=== PATIENT | male | born 1970 | race Caucasian/White ===

== ENCOUNTER 2021-04-10 09:32 | Observation (INO) | payer OTHER ==
--- NOTE | 2021-04-10 10:29 | Event Note ---
ED Screening Note Date of service: 04/10/21 Time: 10:28 ED Screening Note: Patient sent by Dr. Luz for elevated potassium was 6.2 History of diabetes, CVA, and newly diagnosed CKD, not on dialysis This initial assessment/diagnostic orders/clinical plan/treatment(s) is/are subject to change based on patients health status, clinical progression and re- assessment by fellow clinical providers in the ED. Further treatment and workup at subsequent clinical providers discretion. Patient/guardian urged not to elope from the ED as their condition may be serious if not clinically assessed and managed. Initial orders include: Labs EKG
[2021-04-10 10:56] LABS: Basophils # (Auto) 0.1 K/mm3 (0.0-0.1); Basophils % (Auto) 1.3 % (0.0-1.8); Eosinophils # (Auto) 0.2 K/mm3 (0.0-0.4); Eosinophils % (Auto) 2.2 % (0.0-4.3); Hematocrit 33.8 % (35.5-45.6); Hemoglobin 11.5 gm/dl (11.8-15.2); Lymphocytes # (Auto) 1.6 K/mm3 (1.2-5.4); Lymphocytes % (Auto) 22.1 % (13.4-35.0); Mean Corpuscular HGB Conc 34 % (32-34); Mean Corpuscular Volume 84 fl (84-94); Monocytes # (Auto) 0.5 K/mm3 (0.0-0.8); Monocytes % (Auto) 6.6 % (0.0-7.3); Platelet Count 219 K/mm3 (140-440); Red Blood Count 4.03 M/mm3 (3.65-5.03); Red Cell Distribution Width 14.3 % (13.2-15.2)
[2021-04-10 11:13] LABS: Albumin 4.1 g/dL (3.9-5); Calcium 9.3 mg/dL (8.4-10.2)
[2021-04-10] MEDS ORDERED: INSULIN REGULAR, HUMAN 100 UNITS/1 ML IV ONE (11:40)
[2021-04-10] MEDS ORDERED: SODIUM BICARB 8.4% 50 MEQ/50 ML SYRINGE IV ONE (11:40)
[2021-04-10] MEDS ORDERED: SODIUM CHLORIDE 0.9% 1000 ML 1,000 ML IV ONE (11:40)
[2021-04-10] MEDS ORDERED: SODIUM POLYSTYRENE 15 GM/60 ML ORAL LIQD PO ONE (11:40)
[2021-04-10] MEDS ORDERED: DEXTROSE 50% IN WATER (25GM) 50 ML SYRINGE IV ONE ×3 (11:40→15:13)
--- NOTE | 2021-04-10 13:08 | Emergency Department Report ---
ED General Adult HPI - General Chief complaint: Recheck/Abnormal Lab/Rx Stated complaint: SENT BY DOC/HIGH POTASSIUM LEVEL Time Seen by Provider: 04/10/21 10:25 Source: patient Mode of arrival: Ambulatory Limitations: No Limitations - History of Present Illness Initial comments: Patient is a 51-year-old gentleman who is presenting with complaint of "I need to have my potassium checked". Patient states that he does have stage III renal insufficiency and hypertension. He saw his electrical cad technician Dr. Burgos yesterday and was called to come to the emergency department because his potassium was 6.3. Patient states he feels fine and denies any cough cold congestion fevers chills nausea vomiting diarrhea or decreased urination. States he is urinating freely. He has no pain anywhere. - Related Data Allergies Allergy/AdvReac Type Severity Reaction Status Date / Time No Known Allergies Allergy Unverified 04/10/21 09:34 ED Review of Systems ROS: Stated complaint: SENT BY DOC/HIGH POTASSIUM LEVEL Other details as noted in HPI Comment: All other systems reviewed and negative ED Past Medical Hx - Past Medical History Hx Diabetes: Yes Hx Renal Disease: Yes - Surgical History Past Surgical History?: No - Social History Smoking Status: Never Smoker Substance Use Type: None ED Physical Exam - General Limitations: No Limitations General appearance: alert, in no apparent distress - Head Head exam: Present: atraumatic, normocephalic - Eye Eye exam: Present: normal appearance - ENT ENT exam: Present: mucous membranes moist - Neck Neck exam: Present: normal inspection - Respiratory Respiratory exam: Present: normal lung sounds bilaterally. Absent: respiratory distress, wheezes, rales, rhonchi - Cardiovascular Cardiovascular Exam: Present: regular rate, normal rhythm. Absent: systolic murmur, diastolic murmur, rubs, gallop - GI/Abdominal GI/Abdominal exam: Present: soft, normal bowel sounds. Absent: tenderness, guarding, rebound - Rectal Rectal exam: Present: deferred - Extremities Exam Extremities exam: Present: normal inspection - Back Exam Back exam: Present: normal inspection - Neurological Exam Neurological exam: Present: alert, oriented X3 - Psychiatric Psychiatric exam: Present: normal affect, normal mood - Skin Skin exam: Present: warm, dry, intact, normal color. Absent: rash ED Course Vital Signs 04/10/21 09:39 Temperature 98.1 F Pulse Rate 101 H Respiratory 20 Rate Blood Pressure 151/89 O2 Sat by Pulse 98 Oximetry ED Medical Decision Making - Lab Data Result diagrams: 04/10/21 10:34 04/10/21 10:34 Lab Results 04/10/21 04/10/21 Range/Units 10:34 10:34 WBC 7.2 (4.5-11.0) K/mm3 RBC 4.03 (3.65-5.03) M/mm3 Hgb 11.5 L (11.8-15.2) gm/dl Hct 33.8 L (35.5-45.6) % MCV 84 (84-94) fl MCH 29 (28-32) pg MCHC 34 (32-34) % RDW 14.3 (13.2-15.2) % Plt Count 219 (140-440) K/mm3 Lymph % (Auto) 22.1 (13.4-35.0) % [place] % (Auto) 6.6 (0.0-7.3) % Eos % (Auto) 2.2 (0.0-4.3) % Baso % (Auto) 1.3 (0.0-1.8) % Lymph # (Auto) 1.6 (1.2-5.4) K/mm3 [place] # (Auto) 0.5 (0.0-0.8) K/mm3 Eos # (Auto) 0.2 (0.0-0.4) K/mm3 Baso # (Auto) 0.1 (0.0-0.1) K/mm3 Seg Neutrophils % 67.8 (40.0-70.0) % Seg Neutrophils # 4.9 (1.8-7.7) K/mm3 Sodium 137 (137-145) mmol/L Potassium 6.4 H* (3.6-5.0) mmol/L Chloride 102.5 (98-107) mmol/L Carbon Dioxide 25 (22-30) mmol/L Anion Gap 16 mmol/L BUN 35 H (9-20) mg/dL Creatinine 2.4 H (0.8-1.3) mg/dL Estimated GFR 29 ml/min BUN/Creatinine Ratio 15 % Glucose 177 H (75-100) mg/dL Calcium 9.3 (8.4-10.2) mg/dL Total Bilirubin 0.30 (0.1-1.2) mg/dL AST 19 (5-40) units/L ALT 16 (7-56) units/L Alkaline Phosphatase 119 (35-129) units/L Total Protein 6.7 (6.3-8.2) g/dL Albumin 4.1 (3.9-5) g/dL Albumin/Globulin Ratio 1.6 % - EKG Data -: EKG Interpreted by Me EKG shows normal: sinus rhythm, axis, intervals, QRS complexes, ST-T waves Rate: normal - EKG Data Interpretation: normal EKG - Medical Decision Making Patient here in the emergency department for evaluation of his potassium. Recheck the patient's potassium and it was 6.4 with no hemolysis. Patient given a cocktail of D50, 10 units of insulin, Kayexalate and sodium bicarb. Patient be admitted for observation. Critical care attestation.: If time is entered above; I have spent that time in minutes in the direct care of this critically ill patient, excluding procedure time. ED Disposition Clinical Impression: Hyperkalemia Disposition: 09 OP ADMIT IP TO THIS HOSP Is pt being admited?: Yes Does the pt Need Aspirin: No Condition: Stable Time of Disposition: 13:09
[2021-04-10] MEDS ORDERED: ACETAMINOPHEN 325 MG TAB PO PRN (14:41)
[2021-04-10] MEDS ORDERED: oxyCODONE /ACETAMINOPHEN 5-325MG TAB PO PRN (14:41)
[2021-04-10] MEDS ORDERED: ALBUTEROL 2.5 MG/3 ML NEBU IH PRN (14:41)
[2021-04-10] MEDS ORDERED: ONDANSETRON 4 MG/2 ML INJ IV PRN (14:41)
[2021-04-10] MEDS ORDERED: HYDROmorphone 1 MG/1 ML INJ IV PRN (14:41)
--- NOTE | 2021-04-10 14:45 | History and Physical Report ---
History of Present Illness Chief complaint: My potassium is high History of present illness: 51 YO Male with DM, HTN, CKD presents to ED for evaluation. Patient reports "my potassium is really high". Patient states that he was seen and evaluated by his ammonia still operator Dr. Simeon on 04/09/2021. Patient reports that he received a call today stating that his potassium was high and to seek further care. Patient transported to [facility] via private vehicle for further care and evaluation of the aforementioned symptoms. Patient seen and evaluated in the emergency department. All lab and imaging studies reviewed. Patient found to have hyperkalemia without EKG changes, as well as ELLEN with ATN. Patient treated with supportive care, IV fluid resuscitation therapy. Patient placed in observation status and admitted to medical floor for further care and evaluation. Patient denies fever, chills, chest pain, palpitation, productive cough, skin rash, recent ill contacts, or known exposure to COVID-19. No prior admission for review. No medication listed at time of admission for reconciliation. Nephrology team consulted in ED. Past History Past Medical History: diabetes, hypertension, renal failure Past Surgical History: No surgical history, Other (Reviewed) Social history: single. denies: smoking, alcohol abuse, prescription drug abuse Family history: hypertension Medications and Allergies Allergies Allergy/AdvReac Type Severity Reaction Status Date / Time No Known Allergies Allergy Unverified 04/10/21 09:34 Active Meds: Active Medications Acetaminophen (Acetaminophen 325 Mg Tab) 650 mg PO Q4H PRN PRN Reason: Pain MILD(1-3)/Fever >100.5/RENE Albuterol (Albuterol 2.5 Mg/3 Ml Nebu) 2.5 mg IH Q4HRT PRN PRN Reason: Shortness Of Breath Hydromorphone HCl (Hydromorphone 1 Mg/1 Ml Inj) 0.5 mg IV Q12H PRN PRN Reason: Pain , Severe (7-10) Sodium Chloride (Nacl 0.9% 1000 Ml) 1,000 mls @ 125 mls/hr IV DIRECT ISABELLE Ondansetron HCl (Ondansetron 4 Mg/2 Ml Inj) 4 mg IV Q8H PRN PRN Reason: Nausea And Vomiting Oxycodone/Acetaminophen (Oxycodone /Acetaminophen 5-325mg Tab) 1 tab PO Q12H PRN PRN Reason: Pain, Moderate (4-6) Sodium Chloride (Sodium Chloride 0.9% 10 Ml Flush Syringe) 10 ml IV BID ISABELLE Sodium Chloride (Sodium Chloride 0.9% 10 Ml Flush Syringe) 10 ml IV PRN PRN PRN Reason: LINE FLUSH Review of Systems Constitutional: no weight loss, no weight gain, no fever, no chills Ears, nose, mouth and throat: no ear pain, no decreased hearing, no nose pain, no nasal discharge, no sinus pressure Cardiovascular: no chest pain, no orthopnea, no rapid/irregular heart beat, no syncope Respiratory: no cough, no excessive sputum Gastrointestinal: no abdominal pain, no vomiting, no diarrhea, no hematemesis Genitourinary Male: no dysuria, no hematuria, no flank pain, no urinary frequency, no urinary hesitancy, no incontinence, no erectile dysfunction Rectal: no pain, no incontinence, no bleeding Musculoskeletal: no neck stiffness, no shooting arm pain, no arm numbness/tingling, no low back pain Integumentary: no rash, no pruritis, no redness, no sores, no wounds Neurological: no head injury, no paralysis, no weakness, no parathesias, no numbness, no tingling, no seizures, no syncope, no ataxia, no lack of coordination Psychiatric: no anxiety, no memory loss, no change in sleep habits, no hypersomnia, no change in appetite Endocrine: no cold intolerance, no heat intolerance, no excessive thirst, no nocturia Hematologic/Lymphatic: no easy bruising, no easy bleeding, no lymphadenopathy Allergic/Immunologic: no urticaria, no wheezing, no persistent infections, no anaphylaxis Exam - Constitutional Vitals: Temp Pulse Resp BP Pulse Ox 98.1 F 101 H 20 151/89 98 04/10/21 09:39 04/10/21 09:39 04/10/21 09:39 04/10/21 09:39 04/10/21 09:39 General appearance: Present: no acute distress, well-nourished - EENT Eyes: Present: PERRL ENT: hearing intact, clear oral mucosa - Neck Neck: Present: supple, normal ROM - Respiratory Respiratory effort: normal Respiratory: bilateral: CTA - Cardiovascular Heart Sounds: Present: S1 & S2. Absent: rub, click - Extremities Extremities: pulses symmetrical, No edema Peripheral Pulses: within normal limits - Abdominal General gastrointestinal: Present: soft, non-tender, non-distended, normal bowel sounds Male genitourinary: Present: normal - Integumentary Integumentary: Present: clear, warm, dry - Musculoskeletal Musculoskeletal: gait normal, strength equal bilaterally - Psychiatric Psychiatric: appropriate mood/affect, intact judgment & insight - Neurologic Neurologic: CNII-XII intact, moves all extremities Results - Labs CBC & Chem 7: 04/10/21 10:34 04/10/21 10:34 Labs: Abnormal lab results 04/10/21 04/10/21 Range/Units 10:34 10:34 Hgb 11.5 L (11.8-15.2) gm/dl Hct 33.8 L (35.5-45.6) % Potassium 6.4 H* (3.6-5.0) mmol/L BUN 35 H (9-20) mg/dL Creatinine 2.4 H (0.8-1.3) mg/dL Glucose 177 H (75-100) mg/dL Assessment and Plan - Patient Problems (1) Hyperkalemia Current Visit: Yes Status: Acute Plan to address problem: Calcium, Kayexalate, supportive care, no EKG changes, repeat BMP in a.m., nephrology team consulted in ED as per ED staff. (2) Hypertension Current Visit: Yes Status: Acute Qualifiers: Hypertension type: primary hypertension Qualified Code(s): I10 - Essential (primary) hypertension Plan to address problem: Monitor blood pressure every shift, continue medical management. (3) Diabetes Current Visit: Yes Status: Acute Plan to address problem: Consistent carbohydrate diet, sliding scale insulin, Accu-Chek, hypoglycemia protocol, supportive care. (4) DVT prophylaxis Current Visit: Yes Status: Acute Plan to address problem: SCDs bilateral lower extremities while in bed, patient is ambulatory
--- NOTE | 2021-04-10 15:49 | Event Note ---
Date: 04/10/21 Case discussed with ER physician, recommend admission for management Patient sent from clinic due to labs concerning for hyperkalemia Patient currently has hyperkalemia with ELLEN/CKD No immediate indication for dialysis but will need extensive workup Medical management for now with repeat lab work and further management as warranted Check renal ultrasound Check TLS labs Check CPK Renal diet Nereida Finley MD
[2021-04-10 15:57] LABS: Calcium 8.8 mg/dL (8.4-10.2)
[2021-04-10 16:00] LABS: Uric Acid 6.1 mg/dL (3.5-7.6)
[2021-04-10] MEDS: SODIUM CHLORIDE 0.9% 1000 ML 1,000 ML IV SCH (23:21)
[2021-04-11] MEDS: SODIUM CHLORIDE 0.9% 1000 ML 1,000 ML IV SCH ×2 (05:07→13:56)
[2021-04-11 09:39] LABS: Calcium 9.2 mg/dL (8.4-10.2)
--- NOTE | 2021-04-11 10:34 | Ultrasound Report ---
. ULTRASOUND RENAL INDICATION / CLINICAL INFORMATION: ELLEN. COMPARISON: None available. FINDINGS: RIGHT KIDNEY: Length = 11.2 cm. - Echogenicity: Normal. - Cortical Thickness: Normal. - Hydronephrosis: None. - Cyst or mass: No significant abnormality. - Stones: None seen. LEFT KIDNEY: Length = 10.9 cm. - Echogenicity: Normal. - Cortical Thickness: Normal. - Hydronephrosis: None. - Cyst or mass: No significant abnormality. - Stones: None seen. URINARY BLADDER: No significant abnormality. FREE FLUID: None. ADDITIONAL FINDINGS: None. IMPRESSION: 1. No significant abnormality. Signer Name: Esdras Fontenot MD Signed: 04/11/2021 10:30 AM Workstation Name: [id number]
[2021-04-11] MEDS ORDERED: SODIUM POLYSTYRENE 15 GM/60 ML ORAL LIQD PO NR ×2 (10:37→14:00)
--- NOTE | 2021-04-11 13:05 | Progress Note ---
Assessment and Plan Assessment and plan: 51 YO Male with DM, HTN, CKD presents to ED for evaluation. Patient reports "my potassium is really high". Patient states that he was seen and evaluated by his tail worker Dr. Simeon on 04/09/2021. Patient reports that he received a call today stating that his potassium was high and to seek further care. Patient transported to [facility] via private vehicle for further care and evaluation of the aforementioned symptoms. Patient seen and evaluated in the emergency department. All lab and imaging studies reviewed. Patient found to have hyperkalemia without EKG changes, as well as ELLEN with ATN. Patient treated with supportive care, IV fluid resuscitation therapy. Patient placed in observation status and admitted to medical floor for further care and evaluation. Patient denies fever, chills, chest pain, palpitation, productive cough, skin rash, recent ill contacts, or known exposure to COVID-19. No prior admission for review. No medication listed at time of admission for reconciliation. Nephrology team consulted in ED. ELLEN with ATN: IV fluid resuscitation therapy, BMP, repeat BMP in a.m. to monitor serum creatinine as well as GFR, nephrology team consulted in ED, supportive care. Hyperkalemia Current Visit: Yes Status: Acute Plan to address problem: Calcium, Kayexalate, supportive care, no EKG changes, repeat BMP in a.m., nephrology team consulted in ED as per ED staff. 04/11: Still elevated, will give additional kayxlate. Hypertension Current Visit: Yes Status: Acute Qualifiers: Hypertension type: primary hypertension Qualified Code(s): I10 - Essential (primary) hypertension Plan to address problem: Monitor blood pressure every shift, continue medical management. Diabetes Current Visit: Yes Status: Acute Plan to address problem: Consistent carbohydrate diet, sliding scale insulin, Accu-Chek, hypoglycemia protocol, supportive care. DVT prophylaxis Current Visit: Yes Status: Acute Plan to address problem: SCDs bilateral lower extremities while in bed, patient is ambulatory History Interval history: Patient seen and examined, No acute distress noted at this time. Potassium still elevated, he denies taken potassium supplement but states that he has been eating lots of potatoes. Hospitalist Physical - Physical exam Narrative exam: General appearance: Present: no acute distress, well-nourished - EENT Eyes: Present: PERRL ENT: hearing intact, clear oral mucosa - Neck Neck: Present: supple, normal ROM - Respiratory Respiratory effort: normal Respiratory: bilateral: CTA - Cardiovascular Heart Sounds: Present: S1 & S2. Absent: rub, click - Extremities Extremities: pulses symmetrical, No edema Peripheral Pulses: within normal limits - Abdominal General gastrointestinal: Present: soft, non-tender, non-distended, normal bowel sounds Male genitourinary: Present: normal - Integumentary Integumentary: Present: clear, warm, dry - Musculoskeletal Musculoskeletal: gait normal, strength equal bilaterally - Psychiatric Psychiatric: appropriate mood/affect, intact judgment & insight - Neurologic Neurologic: CNII-XII intact, moves all extremities - Constitutional Vitals: Temp Pulse Resp BP Pulse Ox 97.9 F 84 20 140/83 96 04/11/21 06:33 04/11/21 06:33 04/11/21 06:33 04/11/21 06:32 04/11/21 06:33 General appearance: Present: no acute distress, well-nourished Results - Labs CBC & Chem 7: 04/10/21 10:34 04/11/21 20:33 Labs: Laboratory Last Values WBC 7.2 K/mm3 (4.5-11.0) 04/10/21 10:34 RBC 4.03 M/mm3 (3.65-5.03) 04/10/21 10:34 Hgb 11.5 gm/dl (11.8-15.2) L 04/10/21 10:34 Hct 33.8 % (35.5-45.6) L 04/10/21 10:34 MCV 84 fl (84-94) 04/10/21 10:34 MCH 29 pg (28-32) 04/10/21 10:34 MCHC 34 % (32-34) 04/10/21 10:34 RDW 14.3 % (13.2-15.2) 04/10/21 10:34 Plt Count 219 K/mm3 (140-440) 04/10/21 10:34 Lymph % (Auto) 22.1 % (13.4-35.0) 04/10/21 10:34 [place] % (Auto) 6.6 % (0.0-7.3) 04/10/21 10:34 Eos % (Auto) 2.2 % (0.0-4.3) 04/10/21 10:34 Baso % (Auto) 1.3 % (0.0-1.8) 04/10/21 10:34 Lymph # (Auto) 1.6 K/mm3 (1.2-5.4) 04/10/21 10:34 [place] # (Auto) 0.5 K/mm3 (0.0-0.8) 04/10/21 10:34 Eos # (Auto) 0.2 K/mm3 (0.0-0.4) 04/10/21 10:34 Baso # (Auto) 0.1 K/mm3 (0.0-0.1) 04/10/21 10:34 Seg Neutrophils % 67.8 % (40.0-70.0) 04/10/21 10:34 Seg Neutrophils # 4.9 K/mm3 (1.8-7.7) 04/10/21 10:34 Sodium 139 mmol/L (137-145) 04/11/21 08:34 Potassium 6.0 mmol/L (3.6-5.0) H 04/11/21 10:42 Chloride 105.0 mmol/L (98-107) 04/11/21 08:34 Carbon Dioxide 25 mmol/L (22-30) 04/11/21 08:34 Anion Gap 15 mmol/L 04/11/21 08:34 BUN 30 mg/dL (9-20) H 04/11/21 08:34 Creatinine 2.0 mg/dL (0.8-1.3) H 04/11/21 08:34 Estimated GFR 35 ml/min 04/11/21 08:34 BUN/Creatinine Ratio 15 % 04/11/21 08:34 Glucose 144 mg/dL (75-100) H 04/11/21 08:34 POC Glucose 228 mg/dL (70-105) H 04/10/21 16:42 Uric Acid 6.1 mg/dL (3.5-7.6) 04/10/21 15:26 Calcium 9.2 mg/dL (8.4-10.2) 04/11/21 08:34 Phosphorus 3.60 mg/dL (2.5-4.5) 04/10/21 15:26 Total Bilirubin 0.30 mg/dL (0.1-1.2) 04/10/21 10:34 AST 19 units/L (5-40) 04/10/21 10:34 ALT 16 units/L (7-56) 04/10/21 10:34 Alkaline Phosphatase 119 units/L (35-129) 04/10/21 10:34 Total Creatine Kinase 237 units/L (55-170) H 04/10/21 15:26 Total Protein 6.7 g/dL (6.3-8.2) 04/10/21 10:34 Albumin 4.1 g/dL (3.9-5) 04/10/21 10:34 Albumin/Globulin Ratio 1.6 % 04/10/21 10:34 Garcia/IV: Voiding Method Urinal Active Medications - Current Medications Current Medications: Generic Name Dose Route Start Last Admin Trade Name Freq PRN Reason Stop Dose Admin Acetaminophen 650 mg 04/10/21 14:41 Acetaminophen 325 Mg Tab PO Q4H PRN Pain MILD(1-3)/Fever >100.5/RENE Albuterol 2.5 mg 04/10/21 14:41 Albuterol 2.5 Mg/3 Ml Nebu IH Q4HRT PRN Shortness Of Breath Hydromorphone HCl 0.5 mg 04/10/21 14:41 Hydromorphone 1 Mg/1 Ml Inj IV Q12H PRN Pain , Severe (7-10) Sodium Chloride 1,000 mls @ 125 mls/hr 04/10/21 14:45 04/11/21 05:07 Nacl 0.9% 1000 Ml IV 125 mls/hr DIRECT ISABELLE Administration Ondansetron HCl 4 mg 04/10/21 14:41 Ondansetron 4 Mg/2 Ml Inj IV Q8H PRN Nausea And Vomiting Oxycodone/Acetaminophen 1 tab 04/10/21 14:41 Oxycodone /Acetaminophen 5-325mg Tab PO Q12H PRN Pain, Moderate (4-6) Sodium Chloride 10 ml 04/10/21 22:00 04/10/21 23:21 Sodium Chloride 0.9% 10 Ml Flush Syringe IV 10 ml BID ISABELLE Administration Sodium Chloride 10 ml 04/10/21 14:41 Sodium Chloride 0.9% 10 Ml Flush Syringe IV PRN PRN LINE FLUSH
[2021-04-11 19:31] LABS: Bilirubin,Urine NEG (Negative); Blood,Urine SM (Negative); Color,Urine Straw (Yellow); Urobilinogen,Urine < 2.0 mg/dL (<2.0); WBC,Urine < 1.0 /HPF (0.0-6.0)
--- NOTE | 2021-04-11 20:29 | Consultation ---
History of Present Illness - Reason for Consult Consult date: 04/11/21 hyperkalemia - History of Present Illness This is a 51-year-old man with CKD and diabetes who was seen outpatient in our office by Dr. Luz 03/18 for chronic kidney disease. His creatinine at the time was 2.3 and potassium was 5.4. He had routine lab work done prior to the next visit which was concerning for a potassium of 6.3. He was notified to immediately present to the emergency department for further workup. Patient denies poor oral intake, change in medications, aggressive workouts and physical injury. He notes good urine output. He denies NSAID use. He notes abundant use of potatoes in his diet. Past History Past Medical History: diabetes, hypertension, renal failure Past Surgical History: No surgical history, Other (Reviewed) Social history: single. denies: smoking, alcohol abuse, prescription drug abuse Family history: hypertension Medications and Allergies Allergies Allergy/AdvReac Type Severity Reaction Status Date / Time No Known Allergies Allergy Unverified 04/10/21 09:34 Active Meds: Active Medications Acetaminophen (Acetaminophen 325 Mg Tab) 650 mg PO Q4H PRN PRN Reason: Pain MILD(1-3)/Fever >100.5/RENE Albuterol (Albuterol 2.5 Mg/3 Ml Nebu) 2.5 mg IH Q4HRT PRN PRN Reason: Shortness Of Breath Hydromorphone HCl (Hydromorphone 1 Mg/1 Ml Inj) 0.5 mg IV Q12H PRN PRN Reason: Pain , Severe (7-10) Sodium Chloride (Nacl 0.9% 1000 Ml) 1,000 mls @ 125 mls/hr IV [facility] Last Admin: 04/11/21 13:56 Dose: 125 mls/hr Documented by: Ondansetron HCl (Ondansetron 4 Mg/2 Ml Inj) 4 mg IV Q8H PRN PRN Reason: Nausea And Vomiting Oxycodone/Acetaminophen (Oxycodone /Acetaminophen 5-325mg Tab) 1 tab PO Q12H PRN PRN Reason: Pain, Moderate (4-6) Sodium Chloride (Sodium Chloride 0.9% 10 Ml Flush Syringe) 10 ml IV BID [facility] Last Admin: 04/11/21 13:56 Dose: 10 ml Documented by: Sodium Chloride (Sodium Chloride 0.9% 10 Ml Flush Syringe) 10 ml IV PRN PRN PRN Reason: LINE FLUSH Sodium Polystyrene Sulfonate (Sodium Polystyrene 15 Gm/60 Ml Oral Liqd) 30 gm PO ONCE NR Stop: 04/12/21 06:00 Last Admin: 04/11/21 19:01 Dose: 30 gm Documented by: Review of Systems Constitutional: no fever, no chills Ears, nose, mouth and throat: no nasal congestion, no nasal discharge Cardiovascular: no chest pain, no shortness of breath Respiratory: no cough, no excessive sputum Gastrointestinal: no nausea, no vomiting, no diarrhea Musculoskeletal: no morning stiffness, no muscle weakness Integumentary: no rash, no pruritis Neurological: no weakness, no syncope Psychiatric: no anxiety, no paranoia Endocrine: no weight change, no palpatations Allergic/Immunologic: no wheezing Exam - Vital Signs Vital signs: Vital Signs Temp Pulse Resp BP Pulse Ox 98.1 F 101 H 20 151/89 98 04/10/21 09:39 04/10/21 09:39 04/10/21 09:39 04/10/21 09:39 04/10/21 09:39 - Physical Exam Narrative exam: General: No acute distress HEENT: Oral mucosa moist Neck: Supple, no JVD Chest: Clear to auscultation bilaterally Heart: RRR, S1 and S2, no pericardial rub Abdomen: Soft, nontender, no renal bruit Extremity: No peripheral cyanosis, edema Neurological: Alert, awake, no asterixis Dermatology: No skin rash Psych: No agitation Musculoskeletal: No joint effusion Results - Lab Results 04/10/21 10:34 04/11/21 10:42 Most recent lab results Calcium 9.2 mg/dL (8.4-10.2) 04/11/21 08:34 Phosphorus 3.60 mg/dL (2.5-4.5) 04/10/21 15:26 Assessment and Plan Hyperkalemia, no EKG changes Chronic kidney disease Proteinuria Diabetes Etiology of hyperkalemia unclear. TLS and rhabdomyolysis has been ruled out. No signs or symptoms concerning for necrotizing fascitis. Denies decrease in urine output, check bladder scan for retention No acidosis noted on labs, sugars within acceptable range Hold lisinopril Status post medical management of hyperkalemia yesterday Kayexalate 1 today for recurrence, repeat blood work Continue IVF Check UPCR Glucose control as per primary No immediate indication for HD
[2021-04-11 21:02] LABS: Calcium 8.4 mg/dL (8.4-10.2)
[2021-04-11] MEDS ORDERED: LACTATED RINGERS 1,000 ML IV SCH (21:30)
[2021-04-12 01:24] VITALS: BP 147/87
[2021-04-12] MEDS ORDERED: SODIUM BICARBONATE 650 MG TAB PO SCH (08:00)
[2021-04-12 08:15] LABS: Calcium 8.8 mg/dL (8.4-10.2)
[2021-04-12] MEDS ORDERED: SODIUM POLYSTYRENE 15 GM/60 ML ORAL LIQD PO NR (09:30)
--- NOTE | 2021-04-12 10:05 | Progress Note ---
Assessment and Plan Assessment * Hyperkalemia, no EKG changes * Stage III chronic kidney disease * Proteinuria * Type II diabetes mellitus Plan * Hyperkalemia improved * Continue medical management * Continue to hold lisinopril - do not resume at discharge * Continue IVF * Check UPCR * Glucose control as per primary * No immediate indication for HD Subjective Date of service: 04/12/21 Objective - Vital Signs Vital signs: Vital Signs - 12hr 04/11/21 04/12/21 22:10 01:00 Temperature 98.5 F Pulse Rate 96 H Respiratory 18 18 Rate Blood Pressure 147/87 O2 Sat by Pulse 95 100 Oximetry - Lab 04/10/21 10:34 04/12/21 07:08 Most recent lab results Calcium 8.8 mg/dL (8.4-10.2) 04/12/21 07:08 Phosphorus 3.60 mg/dL (2.5-4.5) 04/10/21 15:26 Medications & Allergies - Medications Allergies/Adverse Reactions: Allergies No Known Allergies Allergy (Unverified 04/10/21 09:34) Active Medications: Generic Name Dose Route Start Last Admin Trade Name Freq PRN Reason Stop Dose Admin Acetaminophen 650 mg 04/10/21 14:41 Acetaminophen 325 Mg Tab PO Q4H PRN Pain MILD(1-3)/Fever >100.5/RENE Albuterol 2.5 mg 04/10/21 14:41 Albuterol 2.5 Mg/3 Ml Nebu IH Q4HRT PRN Shortness Of Breath Hydromorphone HCl 0.5 mg 04/10/21 14:41 Hydromorphone 1 Mg/1 Ml Inj IV Q12H PRN Pain , Severe (7-10) Lactated Ringer's 1,000 mls @ 100 mls/hr 04/11/21 21:30 Lactated Ringers IV DIRECT ISABELLE Ondansetron HCl 4 mg 04/10/21 14:41 Ondansetron 4 Mg/2 Ml Inj IV Q8H PRN Nausea And Vomiting Oxycodone/Acetaminophen 1 tab 04/10/21 14:41 Oxycodone /Acetaminophen 5-325mg Tab PO Q12H PRN Pain, Moderate (4-6) Sodium Bicarbonate 1,300 mg 04/12/21 08:00 04/12/21 09:27 Sodium Bicarbonate 650 Mg Tab PO 1,300 mg TID ISABELLE Administration Sodium Chloride 10 ml 04/10/21 22:00 04/11/21 21:26 Sodium Chloride 0.9% 10 Ml Flush Syringe IV 10 ml BID ISABELLE Administration Sodium Chloride 10 ml 04/10/21 14:41 Sodium Chloride 0.9% 10 Ml Flush Syringe IV PRN PRN LINE FLUSH Sodium Polystyrene Sulfonate 30 gm 04/12/21 09:30 04/12/21 09:27 Sodium Polystyrene 15 Gm/60 Ml Oral Liqd PO 04/12/21 12:30 30 gm ONCE@0930 NR Administration
--- NOTE | 2021-04-12 11:46 | Electrocardiograph Report ---
[facility] Test Date: 2021-04-10 Test Time: 09:49:25 Pat Name: SHAMEKA DELEON Department: Room: [facility] 1 Gender: M Manager Multicultural: TOMASZ : 1970 Requested By: FRANCISCO SMITH Order Number: [id number] Reading MD: Juana Perry Measurements Intervals [place] Rate: 95 P: 58 VA: 157 QRS: 32 QRSD: 77 T: 45 QT: 314 QTc: 395 Interpretive Statements Sinus rhythm Nonspecific early repolarization ST abnormality No previous ECG available for comparison Electronically Signed On 04-12-2021 11:46:24 EDT by Juana Perry
--- NOTE | 2021-04-12 12:32 | Discharge Summary ---
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 Patient reports "my potassium is really high". 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 Simeon on 04/09/2021. Patient reports that he received a call today stating that his potassium was high and to seek further care. Patient transported to [facility] via private vehicle for further care and evaluation of the aforementioned symptoms. Patient seen and evaluated in the emergency department. All lab and imaging studies reviewed. Patient found to have hyperkalemia without EKG changes, as well as ELLEN with ATN. Patient treated with supportive care, IV fluid resuscitation therapy. Patient placed in observation status and admitted to medical floor for further care and evaluation. Patient denies fever, chills, chest pain, palpitation, productive cough, skin rash, recent ill contacts, or known exposure to COVID-19. No prior admission for review. No medication listed at time of admission for reconciliation. Nephrology team consulted in ED. 04/12: Potassium down to 5.1 will give additional Kayexalate today discussed with repair armature winder helper raissa for patient to be discharged and follow-up outpatient with them. Advised patient to avoid high potassium diet he verbalized understanding. Hyperkalemia Current Visit: Yes Status: Acute Plan to address problem: Calcium, Kayexalate, supportive care, no EKG changes, repeat BMP in a.m., nephrology team consulted in ED as per ED staff. 04/11: Still elevated, will give additional kayxlate. Hypertension Current Visit: Yes Status: Acute Qualifiers: Hypertension type: primary hypertension Qualified Code(s): I10 - Essential (primary) hypertension Plan to address problem: Monitor blood pressure every shift, continue medical management. Diabetes Current Visit: Yes Status: Acute Plan to address problem: Consistent carbohydrate diet, sliding scale insulin, Accu-Chek, hypoglycemia protocol, supportive care. ELLEN with ATN: IV fluid resuscitation therapy, BMP, repeat BMP in a.m. to monitor serum creatinine as well as GFR, nephrology team consulted in ED, supportive care. Disposition: DC-01 TO HOME OR SELFCARE Final Discharge Diagnosis (Prints w/discharge instructions): Acute kidney injury secondary to vasomotor nephropathy with hyperkalemia Time spent for discharge: 35 minutes Core Measure Documentation - Palliative Care Palliative Care/ Comfort Measures: Not Applicable - Core Measures Any of the following diagnoses?: none Exam - Physical Exam Narrative exam: General appearance: Present: no acute distress, well-nourished - EENT Eyes: Present: PERRL ENT: hearing intact, clear oral mucosa - Neck Neck: Present: supple, normal ROM - Respiratory Respiratory effort: normal Respiratory: bilateral: CTA - Cardiovascular Heart Sounds: Present: S1 & S2. Absent: rub, click - Extremities Extremities: pulses symmetrical, No edema Peripheral Pulses: within normal limits - Abdominal General gastrointestinal: Present: soft, non-tender, non-distended, normal bowel sounds Male genitourinary: Present: normal - Integumentary Integumentary: Present: clear, warm, dry - Musculoskeletal Musculoskeletal: gait normal, strength equal bilaterally - Psychiatric Psychiatric: appropriate mood/affect, intact judgment & insight - Neurologic Neurologic: CNII-XII intact, moves all extremities - Constitutional Vitals: Temp Pulse Resp BP Pulse Ox 98.5 F 96 H 18 147/87 100 04/11/21 22:10 04/11/21 22:10 04/12/21 01:00 04/11/21 22:10 04/12/21 01:00 Plan Activity: advance as tolerated, fall precautions Diet: renal Special Instructions: record daily weights, record daily BP diary Plan of Treatment: Avoid lisinopril Follow up with: SHASHANK JONES MD [Primary Care Provider] - 7 Days OSCAR JOSE MD [Staff Physician] - 7 Days Prescriptions: Hydralazine HCl 50 mg PO TID #90 tablet Sodium Bicarbonate 1,300 mg PO TID #30 tablet
== END 2021-04-12 15:44 | disposition home or self-care (01) ==
LOC: ED 09:32 → 3A 14:41 → INTOOBSV 04-12 09:16 → OBSVTOIN 04-12 09:16
PROVIDERS: ADMIT Internal Medicine; ATTEND Internal Medicine
DX: N17.0 Acute kidney failure with tubular necrosis (principal); E87.5 Hyperkalemia; I12.9 Hypertensive chronic kidney disease with stage 1 through stage 4 chronic kidney disease, or unspecified chronic kidney disease; N18.30 Chronic kidney disease, stage 3 unspecified; E11.22 Type 2 diabetes mellitus with diabetic chronic kidney disease; R80.9 Proteinuria, unspecified
CPT/HCPCS: 36415; 76770; 80048; 80053; 81001; 82550; 82962; 84100; 84132; 84550; 85025; 93005; 96361; 96374; 96375; 96376; 99284; G0378; J7030; J1815